=== PATIENT | female | born 1955 | race Caucasian/White ===

== ENCOUNTER 2018-01-31 21:07 | Emergency (ER) | payer OTHER ==
[2018-01-31 21:13] VITALS: BP 109/70
--- NOTE | 2018-01-31 22:04 | RAD ---
Indication: Left wrist injury 3 views of the wrist demonstrates no fracture. Minimal degenerative changes of the trapezium first metacarpal joint. No other bone or joint abnormality is identified. IMPRESSION: NO FRACTURE OF THE WRIST IS NOTED.
--- NOTE | 2018-01-31 22:09 | RAD ---
Indication: Left hand pain. 2 views of the left hand demonstrates no fracture. No other bone or joint abnormality is identified. Degenerative changes of the trapezium first metacarpal joint is noted. IMPRESSION: No fracture is noted.
--- NOTE | 2018-01-31 22:20 | ED ---
Upper Extremity Pain - HPI Summary HPI Summary: Complains of left wrist and hand pain status post fall today. Denies any other pain or injury. - History of Current Complaint Chief Complaint: EDExtremityUpper Stated Complaint: FALL/LT HAND INJURY Time Seen by Provider: 01/31/18 21:25 Hx Obtained From: Patient Mechanism Of Injury: Fall From A Standing Position Onset/Duration: Started Hours Ago Severity Initially: Mild Pain Location: Wrist Character: Dull, Aching Alleviating Factor(s): Ice, OTC Meds Associated Signs & Symptoms: Positive: Negative - Allergies/Home Medications Allergies/Adverse Reactions: Allergies Allergy/AdvReac Type Severity Reaction Status Date / Time No Known Allergies Allergy Verified 01/31/18 21:13 Home Medications: Home Medications NK [No Home Medications Reported] 01/31/18 [History Confirmed 01/31/18] PMH/Surg Hx/FS Hx/Imm Hx Endocrine/Hematology History: Denies: Hx Diabetes Cardiovascular History: Denies: Hx Hypertension, Hx Pacemaker/ICD Respiratory History: Denies: Hx Asthma Sensory History: Denies: Hx Hearing Aid Psychiatric History: Denies: Hx Panic Disorder - Surgical History Surgery Procedure, Year, and Place: LT SHOULDER ARTHROSCOPY,HEMORRHOID REMOVAL Infectious Disease History: No Infectious Disease History: Denies: Traveled Outside the [place] in Last 30 Days - Social History Alcohol Use: Occasionally Substance Use Type: Reports: None Smoking Status (MU): Never Smoked Tobacco Review of Systems Constitutional: Negative Eyes: Negative ENT: Negative Cardiovascular: Negative Respiratory: Negative Gastrointestinal: Negative Genitourinary: Negative Musculoskeletal: Other Skin: Negative Neurological: Negative Psychological: Normal All Other Systems Reviewed And Are Negative: Yes Physical Exam - Summary Physical Exam Summary: No ecchymosis, erythema, extra warmth, swelling, deformity noted to left wrist or hand. No snuffbox tenderness. PMS intact distally. Full range of motion of left wrist and left fingers. Triage Information Reviewed: Yes Vital Signs On Initial Exam: Initial Vitals Temp Pulse Resp BP Pulse Ox 97.0 F 65 18 109/70 96 01/31/18 21:10 01/31/18 21:10 01/31/18 21:10 01/31/18 21:10 01/31/18 21:10 Vital Signs Reviewed: Yes Appearance: Positive: Well-Appearing Skin: Positive: Warm Head/Face: Positive: Normal Head/Face Inspection Eyes: Positive: Normal Neck: Positive: Supple Respiratory/Lung Sounds: Positive: Clear to Auscultation Cardiovascular: Positive: Normal Abdomen Description: Positive: Nontender Musculoskeletal: Positive: Normal Neurological: Positive: Normal Psychiatric: Positive: Normal AVPU Assessment: Alert - Jabari Coma Scale Best Eye Response: 4 - Spontaneous Best Motor Response: 6 - Obeys Commands Best Verbal Response: 5 - Oriented Coma Scale Total: 15 Diagnostics - Vital Signs Vital Signs Temp Pulse Resp BP Pulse Ox 01/31/18 21:10 97.0 F 65 18 109/70 96 - Laboratory Lab Statement: Any lab studies that have been ordered have been reviewed, and results considered in the medical decision making process. - Radiology wrist Xray Interpretation: No Acute Changes Radiology Interpretation Completed By: Radiologist hand Xray Interpretation: No Acute Changes Radiology Interpretation Completed By: Radiologist Course/Dx - Diagnoses Provider Diagnoses: Fall Discharge - Sign-Out/Discharge Documenting (check all that apply): Discharge/Admit/Transfer - Discharge Plan Condition: Stable Disposition: HOME Patient Education Materials: Wrist Injury (ED) Referrals: Leonidas Rapp MD [Primary Care Provider] - Johny Major MD [Medical Doctor] - Additional Instructions: Symptoms persist follow-up with orthopedics Dr. Major. Return to the ED for any new or worsening symptoms - Billing Disposition and Condition Condition: STABLE Disposition: Home
== END 2018-01-31 22:27 | disposition home or self-care (01) ==
LOC: ED 21:07
DX: M25.532 Pain in left wrist (principal); M79.642 Pain in left hand; Z91.81 History of falling
CPT/HCPCS: 99282